=== PATIENT | male | born 1995 | race Two or more races ===

== ENCOUNTER 2017-12-10 21:57 | Emergency (ER) | payer BC ==
[2017-12-10] MEDS: IPRATRPIUM/ALBUTEROL 0.5/2.5MG 3 ML NEBU. NEB (22:20)
[2017-12-10] MEDS: CETIRIZINE HCL 10 MG TABLET. PO (22:46)
[2017-12-10] MEDS: methylPREDNISolone SOD SUCC PF 125 MG/2 ML VIAL. IM (22:47)
== END 2017-12-10 23:12 | disposition home or self-care (01) ==
LOC: ER 21:57
DX: J45.21 Mild intermittent asthma with (acute) exacerbation (principal)
CPT/HCPCS: 94640; 94660; 96372; 99283; J2930; J7620

== ENCOUNTER 2018-07-15 16:09 | Emergency (ER) | payer BC ==
[~2018-07-15] VITALS: Ht 177.8 cm; Wt 81.6 kg
[~2018-07-15 16:09] MED LIST: BENZ100C PO; CETI10TA22 PO; METH4TAB2 PO; VENTOLIN HFA18 GM INH
[2018-07-15] MEDS ORDERED: IBUPROFEN 200 MG TABLET. PO ONE (17:45)
[2018-07-15 18:12] LABS: INFLUENZA A PATIENT POSITIVE (NEGATIVE); INFLUENZA B PATIENT NEGATIVE (NEGATIVE)
[2018-07-15] MEDS ORDERED: OSEL75CA PO (18:30)
[2018-07-15] MEDS ORDERED: IV NORMAL SALINE 1000ML BAG 1,000 ML IV ONE ×2 (18:30→19:45)
--- NOTE | 2018-07-15 18:30 | PHYS DOC ---
Past Medical History Past Medical History: Asthma Past Surgical History: Other Additional Past Surgical Histo: L. ARM Alcohol Use: None Drug Use: None Adult General Chief Complaint Chief Complaint: FLU SYMPTOM HPI HPI Patient is a 22 year old male who presents with 1 day of cough, body aches, fever. Patient denies coughing up any mucus. Took Tylenol at 1300 today for fever. Patient is currently febrile 102.3. Review of Systems Review of Systems Constitutional: fever or chills [] Eyes: Denies change in visual acuity, redness, or eye pain [] HENT: nasal congestion or Denies sore throat [] Respiratory: cough or Denies shortness of breath [] Cardiovascular: No additional information not addressed in HPI [] GI: Denies abdominal pain, nausea, vomiting, bloody stools or diarrhea [] : Denies dysuria or hematuria [] Musculoskeletal: generalized body aches,. Denies back pain or joint pain [] Integument: Denies rash or skin lesions [] Neurologic: Denies headache, focal weakness or sensory changes [] Endocrine: Denies polyuria or polydipsia [] All other systems were reviewed and found to be within normal limits, except as documented in this note. Current Medications Current Medications Current Medications Medications (Trade) Dose Ordered Sig/Devonte Start Time Stop Time Status Last Admin Dose Admin Ibuprofen (Motrin) 600 mg 1X ONCE 07/15/18 17:45 07/15/18 17:46 DC 07/15/18 18:02 600 MG Sodium Chloride 1,000 ml @ 1,000 mls/hr 1X ONCE 07/15/18 19:45 07/15/18 20:44 Allergies Allergies Allergies Coded Allergies Type Severity Reaction Last Updated Verified No Known Drug Allergies 01/22/16 No Physical Exam Physical Exam Constitutional: Well developed, well nourished, no acute distress, non-toxic appearance. [] HENT: Normocephalic, atraumatic, bilateral external ears normal, oropharynx moist, no oral exudates, nose normal. [] Eyes: PERRLA, EOMI, conjunctiva normal, no discharge. [] Neck: Normal range of motion, no tenderness, supple, no stridor. [] Cardiovascular:Heart rate regular tachycardia rhythm, no murmur [] Lungs & Thorax: Bilateral breath sounds clear to auscultation [] Abdomen: Bowel sounds normal, soft, no tenderness, no masses, no pulsatile masses. [] Skin: Warm, dry, no erythema, no rash. [] Back: No tenderness, no CVA tenderness. [] Extremities: No tenderness, no cyanosis, no clubbing, ROM intact, no edema. [] Neurologic: Alert and oriented X 3, normal motor function, normal sensory function, no focal deficits noted. [] Psychologic: Affect normal, judgement normal, mood normal. [] Current Patient Data Vital Signs Vital Signs Date Time Temp Pulse Resp B/P (MAP) Pulse Ox O2 Delivery O2 Flow Rate FiO2 07/15/18 17:18 102.3 121 22 124/71 (88) 98 Room Air 102.3 Lab Values Laboratory Tests Test 07/15/18 17:20 Influenza Type A Antigen Positive (NEGATIVE) Influenza Type B Antigen Negative (NEGATIVE) EKG EKG [] Radiology/Procedures Radiology/Procedures [] Course & Med Decision Making Course & Med Decision Making Patient is a 22 year old male who presents with 1 day of cough, body aches, fever. Patient denies coughing up any mucus. Took Tylenol at 1300 today for fever. Patient is currently febrile 102.3. Patient is eating and drinking appropriately. Patient is given ibuprofen for the ED. Patient speaks in full clear senses. He thinks membranes are moist. Skin is pink warm and dry. Denies chest pain, shortness of air, nausea, vomiting, diarrhea, dizziness, numbness or tingling. Lungs are clear to auscultation all lobes. Heart rate is tachycardia without murmur. Bilateral right ear tympanic is pearly white. Throat is pink and without exudates or swelling. 1814: Patient's heart rate is still at 125. He will receive a bolus of normal saline. 1999: Patient has decided that he wants to leave AMA. His heart rate is 111. Patient is refusing a second liter of fluids her blood work. Patient signed out AMA. Rapid flu positive for flu a. Patient will be put on Tamiflu and continue taking Tylenol and ibuprofen for fever and drink plenty of fluids. Patient should follow up with primary care physician. Shmuel Disclaimer Shmuel Disclaimer This electronic medical record was generated, in whole or in part, using a voice recognition dictation system. Departure Departure Impression: Primary Impression: Influenza A Disposition: 01 HOME, SELF-CARE Condition: STABLE Referrals: NO PCP (PCP) Patient Instructions: Influenza A (H1N1) Additional Instructions: Follow-up with your primary care provider. Drink plenty of fluids. Continue taking Tylenol and ibuprofen for fever or pain. Take medication as prescribed. Scripts Oseltamivir Phosphate (TAMIFLU) 75 Mg Capsule 1 CAP PO BID, #10 CAP Prov: RACHELE OLIVIER APRN 07/15/18 RACHELE OLIVIER APRN Jul 15, 2018 18:30
[2018-07-15 19:50] VITALS: BP 112/74
[2018-07-15 20:02] LABS: BASO % 1 % (0-3); EOS % 1 % (0-3); HEMATOCRIT 45.6 % (39.0-53.0); HEMOGLOBIN 15.2 g/dL (13.0-17.5); LYMPH # 0.6 x10^3/uL (1.0-4.8); LYMPH % 10 % (24-48); MEAN CORPUSCULAR HEMOGLOBIN 30 pg (25-35); MEAN CORPUSCULAR HGB CONC 33 g/dL (31-37); MEAN CORPUSCULAR VOLUME 90 fL (79-100); MONO # 0.6 x10^3/uL (0.0-1.1); MONO % 10 % (0-9); NEUT # 4.8 x10^3uL (1.8-7.7); NEUT % 79 % (31-73); PLATELET COUNT 318 x10^3/uL (140-400); RED BLOOD COUNT 5.07 x10^6/uL (4.30-5.70); RED CELL DISTRIBUTION WIDTH 13.3 % (11.5-14.5)
[2018-07-15 20:05] LABS: CALCIUM 8.8 mg/dL (8.5-10.1); CREATININE 1.2 mg/dL (0.7-1.3); GFR 75.7; POTASSIUM 3.6 mmol/L (3.5-5.1)
[2018-07-15 20:10] LABS: ALBUMIN 3.9 g/dL (3.4-5.0); TOTAL BILIRUBIN 0.5 mg/dL (0.2-1.0); TOTAL PROTEIN 7.8 g/dL (6.4-8.2)
--- NOTE | 2018-07-15 20:42 | RAD ---
CHEST PA LATERAL History: FLU. COUGH. Comparison with 01/22/2016 images, the report not available. Heart size not enlarged. No pneumothorax. No pleural effusion. No focal consolidating infiltrate. Regional skeleton is intact. IMPRESSION: No consolidating infiltrate. Electronically signed by: Celso Hodges MD (07/15/2018 8:39 PM) [facility]
== END 2018-07-15 20:00 | disposition home or self-care (01) ==
LOC: ER 16:09
DX: J10.1 Influenza due to other identified influenza virus with other respiratory manifestations (principal); M79.18 Myalgia, other site; J45.909 Unspecified asthma, uncomplicated
CPT/HCPCS: 36415; 71046; 80053; 85025; 87804; 99284; J7030